=== PATIENT | male | born 1945 | race Caucasian/White ===

== ENCOUNTER 2018-05-31 13:58 | Emergency (ER) | payer MEDICARE ==
[2018-05-31 14:25] VITALS: BP 145/73; TEMP 97.9; O2SAT 94
--- NOTE | 2018-05-31 14:38 | ED.PDOC ---
History of Present Illness - General Chief Complaint: Lower Extremity Injury Stated Complaint: right hip pain Time Seen by Provider: 05/31/18 14:34 Source: patient Exam Limitations: no limitations Additional Information: 73 YEAR OLD FELL YESTERDAY ON THE LEFT SIDE AND SINCE THEN HE IS EXPERIENCING PAIN IN THE RIGHT HIP PAIN IS WORSE ON WEIGHT BEARING - History of Present Illness Occurred: yesterday Pain - Lower Extremity: moderate: Right Thigh/Hip - PAIN ON WEIGHT BEARING Allergies/Adverse Reactions: Allergies NO KNOWN ALLERGY Allergy (Verified 05/31/18 14:24) Home Medications: Ambulatory Orders Acetamin W/Cod #3 Tab [Tylenol w/CODEINE #3] 1 ea PO Q6HR PRN #40 tab 05/31/18 Review of Systems - Review of Systems Constitutional: States: no symptoms reported EENTM: States: no symptoms reported Respiratory: States: no symptoms reported Cardiology: States: no symptoms reported Gastrointestinal/Abdominal: States: no symptoms reported Genitourinary: States: no symptoms reported Musculoskeletal: States: see HPI Skin: States: no symptoms reported Neurological: States: no symptoms reported Endocrine: States: no symptoms reported Past Medical History (General) - Patient Medical History Hx Stroke: No Hx of COPD: Yes Hx Cardiac Disorders: Yes Hx Congestive Heart Failure: No Hx Diabetes: Yes Hx Cancer: Yes - Skin - Vaccination History Hx Tetanus, Diphtheria Vaccination: Yes Hx Influenza Vaccination: Yes Hx Pneumococcal Vaccination: Yes - Social History Hx Tobacco Use: Yes Family Medical History - Family History Father Family History: Unknown Living Status: Unknown Physical Exam - Physical Exam General Appearance: Alert, Comfortable Eyes, Ears, Nose, Throat: PERRL/EOMI, normal ENT inspection, TMs normal, pharynx normal Neck: non-tender, full range of motion, supple, normal inspection Cardiovascular/Respiratory: regular rate, rhythm, no M/R/G, normal peripheral pulses, no JVD Back: no CVA tenderness, no vertebral tenderness Thigh/Hip: normal inspection, other - TENDERNESS AND PAIN ON INTERNAL ROTATION Knee: normal inspection, non-tender, no evidence of injury, normal ROM Ankle: normal inspection, non-tender, no evidence of injury, normal ROM Neuro/Tendon: normal sensation, normal motor functions, normal tendon functions , responds to pain Mental Status: alert, oriented x 3 Progress - Results/Orders Results/Orders: X RAY OF HIP AND PELVIS NO FRACTURE SEEN SUGGEST REST LOCAL ICE NSAID AND FOLLOW UP WITH PCP IF PAIN PERSISTS Departure - Departure Clinical Impression: Sprain of hip Time of Disposition: 15:19 Disposition: Discharge to Home or Self Care Condition: Good Departure Forms: ED Discharge - Pt. Copy, Patient Portal Self Enrollment Instructions: DI for Leg Pain Diet: resume usual diet Home Medications: Ambulatory Orders Acetamin W/Cod #3 Tab [Tylenol w/CODEINE #3] 1 ea PO Q6HR PRN #40 tab 05/31/18
[2018-05-31] MEDS ORDERED: KETOROLAC TROMETHAMINE INJ 60 MG/2 ML VIAL IM ONE (15:16)
--- NOTE | 2018-05-31 15:16 | RAD ---
PROCEDURE: Hip,Right 2 Views Clinical History: TRUMA Indication: Same as above Comparison: None. Technique: 2.0 views of the right hip. Findings: There is no evidence of acute fractures or dislocations involving the bones of the right hip joint and the adjacent pelvic bones. There are no visualization of radiopaque foreign bodies visualized in the soft tissues. The bone mineralization is normal for patient's age and sex. The visualized right sacroiliac joint is unremarkable. The right greater trochanter region is unremarkable. The right femoroacetabular hip joint space is well-maintained. There are no periosteal reactions. The soft tissues are radiographically unremarkable. Impression: Negative for acute bony trauma involving the right hip Location of Interpretation: Teleradiology Electronically signed by: Kilo Ewing MD 05/31/2018 3:15 PM CDT Workstation: [id number]
[2018-05-31] MEDS ORDERED: KETOROLAC TROMETHAMINE INJ 30 MG/ML VIAL IM ONE (15:17)
--- NOTE | 2018-05-31 15:17 | RAD ---
PROCEDURE: Pelvis Clinical History: TRAUMA Indication: Same as above Comparison: CT of the right hip done concurrently . Technique: Single frontal view of the pelvis Findings: There is no evidence of acute fractures or dislocations involving the bones of the pelvis including the bilateral hip joints, the visualized proximal femora and the sacrum. There is no visualization of any radiopaque foreign bodies in the soft tissues. There is no evidence of periosteal reactions involving the pelvic bones. The joint spaces of the pelvis are relatively well-maintained. The visualized portion of the lower lumbar spine shows moderate amount of degenerative change. The soft tissues are radiographically unremarkable. Impression: Negative for acute bony trauma involving the bony pelvis Place of interpretation: [id number]. Electronically signed by: Kilo Ewing MD 05/31/2018 3:16 PM CDT Workstation: [id number]
== END 2018-05-31 15:41 | disposition home or self-care (01) ==
LOC: ER 13:58
DX: S73.109A Unspecified sprain of unspecified hip, initial encounter (principal); J44.9 Chronic obstructive pulmonary disease, unspecified; E11.9 Type 2 diabetes mellitus without complications; Z85.828 Personal history of other malignant neoplasm of skin; Z87.891 Personal history of nicotine dependence; W19.XXXA Unspecified fall, initial encounter
CPT/HCPCS: 72170; 73502; J1885